=== PATIENT | male | born 1985 | race Caucasian/White ===

== ENCOUNTER 2023-10-06 16:36 | Inpatient (IN) ==
[2023-10-06 18:19] LABS: Acetaminophen < 15 mcg/mL; Alcohol, S < 13 mg/dL (<13); Salicylate < 2.50 mg/dL (<30)
[2023-10-06 18:27] LABS: ALT 19 U/L (7-52); AST 20 U/L (13-39); Albumin 5.1 g/dL (3.2-5.2); Albumin/Globulin Ratio 1.9 (1-3); Alkaline Phosphatase 122 U/L (35-149); Anion Gap 16 mmol/L (2-16); Blood Urea Nitrogen 10 mg/dL (6-24); CO2 Carbon Dioxide 22 mmol/L (22-32); Calcium 9.9 mg/dL (8.6-10.3); Chloride 104 mmol/L (101-111); Creatinine, Serum 1.12 mg/dL (0.67-1.17); Globulin 2.7 g/dL (2-4); Glucose 103 mg/dL (70-100); Potassium 3.7 mmol/L (3.5-5.0); Sodium 142 mmol/L (135-145); Total Protein 7.8 g/dL (6.4-8.9); eGFR CKD-EPI 86.2 (>60)
[2023-10-06 18:57] LABS: ABS Basophils 0.1 10^3/uL (0.0-0.1); ABS Monocytes 0.9 10^3/uL (0.0-1.1); ABS Neutrophils 7.8 10^3/uL (1.5-7.6); ABS Nucleated RBC 0.01 10^3/ul; Eosinophil % 0.3 %; Hematocrit 38.5 % (38-53); Hemoglobin 12.1 g/dL (13.2-16.3); Lymphocyte % 18.3 %; Mean Corpuscular Hemoglobin 20.5 pg (27-33); Mean Corpuscular Hgb Conc 31.3 g/dL (31-36); Mean Corpuscular Volume 65.4 fL (80-97); Mean Platelet Volume 8.4 fL (7.5-11.2); Nucleated Red Blood Cells % 0.1 %/100WBC (0.0-0.8); Platelet Count 499 10^3/uL (150-450); Red Blood Count 5.88 10^6/uL (4.06-5.63); Red Cell Distribution Width 17.7 % (12-17); White Blood Count 10.9 10^3/uL (3.6-10.2)
[2023-10-06] MEDS ORDERED: Al Hydrox/Mg Hydrox/Simet LIQ 30 ML UDC PO PRN (19:24)
[2023-10-07 08:22] LABS: HDL Cholesterol 47.5 mg/dL
[2023-10-07] MEDS: Vitamin THERAPEUTIC TAB PO SCH (11:13)
[2023-10-08] MEDS: Vitamin THERAPEUTIC TAB PO SCH (09:33)
[2023-10-09] MEDS: Vitamin THERAPEUTIC TAB PO SCH (07:49)
[2023-10-09] MEDS ORDERED: Influenza vaccine *QUAD* *2023-24* 0.5 ML SYRINGE IM ONE (09:00)
[2023-10-10] MEDS: Vitamin THERAPEUTIC TAB PO SCH (09:12)
[2023-10-11] MEDS: Vitamin THERAPEUTIC TAB PO SCH (08:03)
[2023-10-12] MEDS: Vitamin THERAPEUTIC TAB PO SCH (09:09)
== END 2023-10-12 11:00 | disposition home or self-care (01) | DRG 885 ==
LOC: ED 16:36 → EDHOLD 18:30 → BSU 21:45
PROVIDERS: ADMIT Psychiatry & Neurology Psychiatry; ATTEND Psychiatry & Neurology Psychiatry